=== PATIENT | female | born 1990 | race Caucasian/White ===

== ENCOUNTER 2018-04-30 09:32 | Inpatient (IN) | payer OTHER ==
[~2018-04-30 09:32] MED LIST: Bicitra 30 ML UDCUP PO SCH; CEFAZOLIN 2 GM in Premix Bag 1 BAG IVPB SCH; Lactated Ringer's 1,000 ML IV SCH; Ondansetron PF 4 MG/2 ML Vial IVP PRN; Promethazine HCl 25 MG/ML VIAL IM PRN
--- NOTE | 2018-04-30 09:35 | PDOC.LDHP ---
Labor and Delivery H&P Chief complaint: scheduled section HPI: 27 YEAR OLD AT 39 WEEKS presents for repeat scheduled . TOLAC discussed and declined due to increased risks. Patient has history of benign posterior fossa arachnoid cyst in 2014. Her team at [facility] sent us written clearance for on 03/21/18, stating no concerns from a neurological standpoint. Current gestational age (weeks): 39 Due date: 05/06/18 Grav: 2 Para: 1 Current complications: none Abnormal US findings: Yes (Benign Posterior Fosa Arachnoid Cyst s/p surgery.) Current medications: pre-ike vitamins Previous surgical history: low tranverse CS Social history: none - Physical Exam Vital signs reviewed and normal: yes General: NAD Heart: RRR Lungs: CTAB Abdomen: gravid Extremeties: no edema FHT: category 1 - Assessment L&D Assessment: scheduled repeat section - Plan Plan: admit to L&D, to OR for section
[2018-04-30] MEDS ORDERED: Bicitra 30 ML UDCUP ONE (10:41)
[2018-04-30 10:46] LABS: Hemoglobin 10.7 g/dL (12.0-16.0); Mean Corpuscular HGB CONC 32.4 g/dL (32.0-36.0); Mean Corpuscular Hemoglobin 24.3 pg (27.0-31.0); Mean Corpuscular Volume 75.2 fL (78.0-98.0); Mean Platelet Volume 10.3 fL (7.4-10.4); Platelet Count 243 thou/uL (130-400); RBC Distribution Width 16.6 % (11.5-14.5); White Blood Cell (WBC) Count 11.7 thou/uL (4.8-10.8)
[2018-04-30 10:47] VITALS: BMI 31.6
[2018-04-30] MEDS: Lactated Ringer's 1,000 ML IV SCH ×2 (10:53→10:54)
[2018-04-30 11:23] LABS: Syphilis Antibody Nonreactive (Nonreactive); Syphilis Antibody Index 0.02 S/CO (<1.00 Non-Reactive)
[2018-04-30 11:24] LABS: HBSAg Index 0.22 S/CO (0-0.99); Hep B Surf Ag Non-Reactive S/CO (NonReactive)
[2018-04-30] MEDS ORDERED: Ketorolac Tromethamine 30 MG/ML VIAL ONE ×2 (11:28→12:20)
[2018-04-30] MEDS ORDERED: Ondansetron PF 4 MG/2 ML Vial ONE ×2 (11:28→12:20)
[2018-04-30] MEDS ORDERED: PHENYLEPHRINE-NS 100 MCG/ML 10 ML SYRINGE ONE ×2 (11:28→12:22)
[2018-04-30] MEDS ORDERED: Dexamethasone 20 MG/5 ML VIAL ONE (11:28)
[2018-04-30] MEDS ORDERED: diphenhydrAMINE 50 MG/ML VIAL ONE ×2 (11:28→12:20)
[2018-04-30] MEDS ORDERED: Meperidine HCl/PF 25 MG/ML VIAL SLOW IVP PRN (11:44)
[2018-04-30] MEDS ORDERED: L&D-Morphine 4 MG/ML VIAL SLOW IVP PRN (11:44)
[2018-04-30] MEDS ORDERED: HYDROmorphone 2 MG/ML VIAL SLOW IVP PRN (11:44)
[2018-04-30] MEDS ORDERED: Ondansetron HCl/PF 4 MG/2 ML Vial IVP PRN (11:44)
[2018-04-30] MEDS ORDERED: Ketorolac Tromethamine 30 MG/ML VIAL IVP SCH (11:45)
[2018-04-30] MEDS ORDERED: Communication Order-Pharmacy FS SCH (11:45)
[2018-04-30] MEDS ORDERED: Ketorolac Tromethamine 30 MG/ML VIAL IVP PRN (11:45)
[2018-04-30] MEDS ORDERED: Naloxone HCl 0.4 mg/ml Vial IV PRN (11:45)
[2018-04-30] MEDS ORDERED: Promethazine HCl 25 MG SUPP PR PRN (11:45)
[2018-04-30] MEDS ORDERED: Ondansetron PF 4 MG/2 ML Vial IVP PRN ×2 (11:45→15:28)
[2018-04-30] MEDS ORDERED: Naloxone HCl 0.4 mg/ml Vial IVP PRN ×2 (11:45)
[2018-04-30] MEDS ORDERED: diphenhydrAMINE 50 MG/ML VIAL IVP PRN (11:45)
[2018-04-30] MEDS ORDERED: Promethazine HCl 25 MG/ML VIAL IM PRN ×2 (11:45→15:28)
[2018-04-30] MEDS ORDERED: Eucerin (Mineral Oil/Petrolatum,White) 30 gm Jar TOP PRN (11:45)
[2018-04-30] MEDS ORDERED: MORPHINE 5 MG/10 ML PF VIAL ONE (12:19)
[2018-04-30] MEDS ORDERED: Dexamethasone 4 mg/ml Vial ONE (12:20)
[2018-04-30] MEDS ORDERED: Oxytocin 10 UNITS/ML VIAL ONE ×2 (12:20→12:22)
[2018-04-30] MEDS ORDERED: ePHEDrine/0.9% NaCl/PF SYRINGE 50 mg/10 ml ONE (12:36)
[2018-04-30] MEDS ORDERED: Midazolam HCl 2 mg/2 ml Vial ONE ×2 (12:49→13:12)
[2018-04-30] MEDS ORDERED: Ketamine 50 MG/ML (10ML VIAL) ONE (13:14)
[2018-04-30] MEDS ORDERED: Lanolin Ointment 7 GM TUBE TOP PRN (15:28)
[2018-04-30] MEDS ORDERED: diphenhydrAMINE 25 MG CAP PO PRN (15:28)
[2018-04-30] MEDS ORDERED: Zolpidem Tartrate 5 MG TAB PO PRN (15:28)
[2018-04-30] MEDS ORDERED: Bisacodyl 10 MG SUPP PR PRN (15:28)
[2018-04-30] MEDS ORDERED: Adacel (T-DAP) 0.5 ML SYRINGE IM ONE (15:28)
[2018-04-30] MEDS ORDERED: Measles/Mumps/Rubella 10 MCG/0.5 ML VIAL SC ONE (15:28)
[2018-04-30] MEDS ORDERED: Varicella virus, LIVE 0.5 ML VIAL SC ONE (15:28)
[2018-04-30] MEDS ORDERED: NS / Oxytocin 40 units/1000ml 1,000 ML IV SCH (15:28)
[2018-04-30] MEDS ORDERED: Morphine 2 MG/ML SYRINGE SLOW IVP PRN (17:28)
[2018-04-30] MEDS ORDERED: HYDROcodone/Acetaminophen 5/325 mg Tablet PO PRN (23:45)
[2018-05-01] MEDS: Docusate Calcium (SURFAK) 240 MG CAP PO SCH ×3 (01:12→21:30)
[2018-05-01] MEDS: Ferrous Sulfate 325 MG TAB PO SCH ×3 (01:13→21:30)
[2018-05-01] MEDS: Simethicone Chewable 80 MG TAB PO PRN ×2 (05:42→19:25)
[2018-05-01] MEDS: Prenatal Vitamin 1 TAB PO SCH (08:19)
[2018-05-01] MEDS: HYDROcodone/Acetaminophen 5/325 mg Tablet PO PRN ×2 (08:21→14:22)
[2018-05-01 09:31] LABS: Mean Corpuscular HGB CONC 30.6 g/dL (32.0-36.0); Mean Corpuscular Hemoglobin 23.7 pg (27.0-31.0); Mean Corpuscular Volume 77.3 fL (78.0-98.0); Mean Platelet Volume 10.3 fL (7.4-10.4); Platelet Count 215 thou/uL (130-400); RBC Distribution Width 16.6 % (11.5-14.5); Red Blood Cell (RBC) Count 4.22 mill/uL (4.20-5.40); White Blood Cell (WBC) Count 16.2 thou/uL (4.8-10.8)
[2018-05-01] MEDS: Ibuprofen 800 MG TAB PO SCH ×2 (12:10→21:30)
--- NOTE | 2018-05-01 18:12 | PDOC.PP ---
Post Progress Note Post Day #: 1 PO intake tolerated: yes Flatus: yes Ambulation: yes Vital Signs (12 hours) Temp Pulse Resp BP Pulse Ox 05/01/18 17:25 97.7 F 71 20 129/71 99 05/01/18 12:02 97.8 F 77 20 116/77 05/01/18 08:19 97.6 F 63 20 106/72 98 05/01/18 08:15 98 Weight Weight 202 lb - Physical Examination General: NAD Cardiovascular: no m/r/g, RRR Respiratory: clear to auscultation bilaterally, non-labored breathing Abdominal: + bowel sounds, lochia Extremities: negative homans (B) Skin: CS incision dry & intact, no rash Neurological: no gross focal deficits Result Diagrams: 05/01/18 08:56 Additional Labs: Post Labs Blood Type O POSITIVE 04/30/18 10:29 Hep Bs Antigen Non-Reactive S/CO (NonReactive) 04/30/18 10:29
[2018-05-02] MEDS: HYDROcodone/Acetaminophen 5/325 mg Tablet PO PRN (04:57)
[2018-05-02] MEDS: Ibuprofen 800 MG TAB PO SCH ×2 (05:45→14:29)
[2018-05-02] MEDS: Docusate Calcium (SURFAK) 240 MG CAP PO SCH (09:37)
[2018-05-02] MEDS: Ferrous Sulfate 325 MG TAB PO SCH (09:37)
[2018-05-02] MEDS: Prenatal Vitamin 1 TAB PO SCH (09:37)
[2018-05-02 11:36] VITALS: BP 122/79; TEMP 97.8
--- NOTE | 2018-05-02 14:09 | PDOC.PP ---
Post Progress Note Post Day #: 2 PO intake tolerated: yes Flatus: yes Ambulation: yes Vital Signs (12 hours) Temp Pulse Resp BP Pulse Ox 05/02/18 11:36 97.8 F 80 20 122/79 05/02/18 08:25 99 05/02/18 08:22 97.7 F 92 20 132/74 99 05/02/18 04:55 98.0 F 71 18 118/81 Weight Weight 202 lb - Physical Examination General: NAD Cardiovascular: no m/r/g Respiratory: clear to auscultation bilaterally, non-labored breathing Abdominal: + bowel sounds, lochia Extremities: negative homans (B) Skin: CS incision dry & intact, no rash Neurological: no gross focal deficits Psychiatric: A&Ox3, normal affect Result Diagrams: 05/01/18 08:56 Additional Labs: Post Labs Blood Type O POSITIVE 04/30/18 10:29 Hep Bs Antigen Non-Reactive S/CO (NonReactive) 04/30/18 10:29
--- NOTE | 2018-05-02 21:03 | OP ---
DATE OF PROCEDURE: 04/30/2018 PREOPERATIVE DIAGNOSIS: Intrauterine at 39 weeks and 2 days with a history of previous section. Previous history of neurologic surgery for subarachnoid cyst, and the patient declines trial of labor after previous section. POSTOPERATIVE DIAGNOSIS: Intrauterine at 39 weeks and 2 days with a history of previous section. Previous history of neurologic surgery for subarachnoid cyst, and the patient declines trial of labor after previous section. PROCEDURE PERFORMED: Repeat low transverse section. FINDINGS: Viable male infant, weighing 3950 g or 8 pounds 11 ounces, Apgars 8 and 9. QUANTITATIVE BLOOD LOSS: 557 g. COMPLICATIONS: None. DETAILS OF THE PROCEDURE: The patient was consented and taken back to the operating room where spinal anesthesia was found to be adequate. She was then prepped and draped in the normal sterile fashion. A timeout was performed by the entire operative team. The incision was then marked with a marking pen tested using sharp pickups. An incision was then made with a scalpel. The incision was carried through the adipose tissue down to the underlying rectus fascia using both sharp dissection as well as cautery. Once the fascia was identified, it was incised in the midline and then the fascial incision was carried through in both lateral directions using sharp as well as cautery dissection techniques. Next, the superior aspect of the rectus fascia was grasped with 2 James clamps, which was tented up and the rectus muscles were dissected off using blunt dissection as well as cautery dissection. Similarly, the inferior aspect of the fascial incision was grasped with 2 James clamps, tented up and the rectus muscles were dissected off bluntly as well as sharply. Next, the rectus muscles were in the midline and the peritoneum identified. The peritoneum was then carefully grasped with 2 hemostats and entered sharply. The peritoneal incision was extended superiorly and inferiorly and bladder blade was placed in the lower abdomen. At this point, the uterus was identified and the bladder flap was then developed using pickups with teeth as well as Metzenbaum scissors in both lateral directions. The bladder flap was then dissected downwards using the wire loop machine operator's finger as well as Metzenbaum scissors. The bladder blade was replaced. The lower uterine segment was then identified and entered sharply using a clean scalpel. The uterine incision was then dissected downwards until thin layer of muscle remained and this was entered bluntly using a hemostat to avoid any injury to the baby. The uterine incision was then stretched using two fingers in both lateral directions. An amniotomy was performed artificially using a hemostat and the baby was delivered using fundal pressure in a gentle fashion. Once out, the baby's mouth and nose were bulb suctioned, cord clamped and cut, and the baby was handed to waiting attendants. Next, the uterus was exteriorized, cleared of all clots and debris and the uterine incision was repaired with #1 Monocryl in a running locking fashion. A 2nd suture of the same type was used to obtain complete hemostasis at the uterine incision. The bladder flap was reapproximated using 3-0 Monocryl. Next, patient's left and right adnexa were inspected and appeared to be within normal limits. The posterior cul-de-sac was blotted dry and hemostasis assured. One more look at the uterine incision demonstrated hemostasis. Next, the uterus was replaced back within the abdomen. The peritoneum was reapproximated using 2-0 Monocryl without difficulty. The rectus muscles were then allowed to come back together and 0 chromic was used to aid in reapproximation of the muscle as necessary. The rectus fascia was then reapproximated in a running fashion using 0 Vicryl suture. The adipose tissue was then examined and appeared to be well approximated without any obvious separations. Finally, the skin was reapproximated with 3-0 Monocryl on a Zeke needle without difficulty and Dermabond adhesive was applied to the skin. Once the glue was dry, the drapes were removed and the patient was transferred to an ambulatory bed where she was taken to recovery awake and in stable condition. Sponge, lap, and needle counts were correct x3. Job ID: [id number]
== END 2018-05-02 14:50 | disposition home or self-care (01) | DRG 788 ==
LOC: L&D 09:42 → 3SW 16:39
PROVIDERS: ADMIT Obstetrics & Gynecology; ATTEND Obstetrics & Gynecology
PROC: 10D00Z1 Extraction of Products of Conception, Low, Open Approach (ICD-10-PCS; principal; 2018-04-30)
DX: O34.211 Maternal care for low transverse scar from previous cesarean delivery (principal); Z3A.39 39 weeks gestation of pregnancy; Z37.0 Single live birth
CPT/HCPCS: 36415; 51702; 85027; 86780; 86850; 86900; 86901; 87340; 90715; J1100; J1200; J1885; J2250; J2270; J2405; J2590

== ENCOUNTER 2020-03-27 08:59 | Outpatient (CLI) | payer OTHER ==
[2020-03-28 04:22] LABS: SARS-CoV-2 PCR by NAA Not Detected (NotDetected)
== END 2020-03-27 09:00 | disposition home or self-care (01) ==
LOC: LABBT 08:59
PROVIDERS: ATTEND Obstetrics & Gynecology
DX: Z01.812 Encounter for preprocedural laboratory examination (principal); Z20.822 Contact with and (suspected) exposure to COVID-19
CPT/HCPCS: 87635; U0003; U0005

== ENCOUNTER 2020-04-01 09:54 | Inpatient (IN) | payer OTHER ==
[2020-04-01] MEDS ORDERED: Bicitra 30 ML UDCUP PO PRN (10:03)
[2020-04-01] MEDS ORDERED: Ondansetron PF 4 MG/2 ML Vial IVP PRN ×3 (10:03→15:43)
[2020-04-01] MEDS ORDERED: Promethazine HCl 25 MG/ML VIAL IM PRN ×2 (10:03→11:38)
[2020-04-01] MEDS ORDERED: Famotidine/PF 20 mg/2ml Vial SLOW IVP PRN (10:03)
[2020-04-01] MEDS ORDERED: hydrALAZINE 20 MG/ML VIAL SLOW IVP PRN ×2 (10:03→15:43)
[2020-04-01] MEDS ORDERED: CEFAZOLIN 2 GM in Premix Bag 1 BAG IVPB SCH (10:15)
[2020-04-01] MEDS ORDERED: Lactated Ringer's 1,000 ML IV SCH (10:15)
[2020-04-01 10:33] VITALS: BMI 29.0
[2020-04-01] MEDS ORDERED: FLU VACC QS2020-21(6MOS UP)/PF 60 MCG/0.5 ML SYRINGE IM ONE (10:45)
[2020-04-01 10:55] LABS: Hemoglobin 12.1 g/dL (12.0-16.0); Mean Corpuscular Hemoglobin 26.7 pg (27.0-31.0); Mean Corpuscular Volume 80.7 fL (78.0-98.0); Platelet Count 185 thou/uL (130-400); RBC Distribution Width 15.3 % (11.5-14.5); Red Blood Cell (RBC) Count 4.56 mill/uL (4.20-5.40)
[2020-04-01] MEDS ORDERED: Morphine PF 10 MG/10 ML VIAL ONE (11:12)
[2020-04-01] MEDS ORDERED: PHENYLEPHRINE-NS 100 MCG/ML 10 ML SYRINGE ONE (11:13)
[2020-04-01] MEDS ORDERED: Ketorolac Tromethamine 30 MG/ML VIAL ONE (11:13)
[2020-04-01] MEDS ORDERED: Ondansetron PF 4 MG/2 ML Vial ONE (11:13)
[2020-04-01] MEDS ORDERED: Phenylephrine 40 MG/NS 250 ML 250 ML ONE (11:13)
[2020-04-01] MEDS ORDERED: Oxytocin 10 UNITS/ML VIAL ONE ×2 (11:13→12:51)
[2020-04-01] MEDS ORDERED: ePHEDrine 50 MG/ML VIAL ONE (11:14)
[2020-04-01 11:23] LABS: Syphilis Antibody Nonreactive (Nonreactive); Syphilis Antibody Index 0.03 S/CO (<1.00 Non-Reactive)
[2020-04-01] MEDS ORDERED: Ondansetron HCl/PF 4 MG/2 ML Vial IVP PRN (11:38)
[2020-04-01] MEDS ORDERED: Promethazine HCl 25 MG SUPP PR PRN (11:38)
[2020-04-01] MEDS ORDERED: Naloxone HCl 0.4 mg/ml Vial IVP PRN ×2 (11:38)
[2020-04-01] MEDS ORDERED: L&D-Morphine 4 MG/ML VIAL SLOW IVP PRN (11:38)
[2020-04-01] MEDS ORDERED: diphenhydrAMINE 50 MG/ML VIAL IVP PRN (11:38)
[2020-04-01] MEDS ORDERED: HYDROmorphone 2 MG/ML VIAL SLOW IVP PRN (11:38)
[2020-04-01] MEDS ORDERED: Naloxone HCl 0.4 mg/ml Vial IV PRN (11:38)
[2020-04-01] MEDS ORDERED: Communication Order-Pharmacy FS SCH (11:45)
[2020-04-01] MEDS ORDERED: Fentanyl 250 MCG/5 ML VIAL ONE (12:37)
[2020-04-01] MEDS ORDERED: PROPOFOL 20 ML ONE ×2 (12:37→12:54)
[2020-04-01] MEDS ORDERED: Promethazine HCl 25 MG/ML VIAL ONE (12:39)
[2020-04-01] MEDS: Meperidine HCl/PF 25 MG/ML VIAL SLOW IVP PRN ×2 (13:52→14:25)
[2020-04-01] MEDS ORDERED: Meperidine HCl/PF 25 MG/ML VIAL ONE ×2 (13:52→14:23)
[2020-04-01] MEDS ORDERED: Morphine 4 MG/ML VIAL ONE (14:23)
[2020-04-01 14:40] LABS: HBSAg Index 0.16 S/CO (0-0.99); Hep B Surf Ag Non-Reactive S/CO (NonReactive)
[2020-04-01] MEDS ORDERED: Morphine 4 MG/ML VIAL SLOW IVP PRN (15:42)
[2020-04-01] MEDS ORDERED: Bisacodyl 10 MG SUPP PR PRN (15:43)
[2020-04-01] MEDS ORDERED: diphenhydrAMINE 25 MG CAP PO PRN (15:43)
[2020-04-01] MEDS ORDERED: Lanolin Ointment 7 GM TUBE TOP PRN (15:43)
[2020-04-01] MEDS ORDERED: Acetaminophen 325 MG TAB PO PRN (15:43)
[2020-04-01] MEDS ORDERED: Ketorolac Tromethamine 30 MG/ML VIAL IVP SCH (18:00)
[2020-04-01] MEDS: Ketorolac Tromethamine 30 MG/ML VIAL IVP PRN (18:48)
[2020-04-01] MEDS: Simethicone Chewable 80 MG TAB PO PRN (18:49)
[2020-04-01] MEDS: Docusate Calcium (SURFAK) 240 MG CAP PO SCH (21:41)
[2020-04-01] MEDS: Ibuprofen 800 MG TAB PO SCH (22:00)
[2020-04-02] MEDS: Ketorolac Tromethamine 30 MG/ML VIAL IVP PRN ×2 (02:20→12:22)
[2020-04-02 05:41] LABS: Hemoglobin 10.7 g/dL (12.0-16.0); Mean Corpuscular HGB CONC 32.5 g/dL (32.0-36.0); Mean Corpuscular Hemoglobin 26.1 pg (27.0-31.0); Mean Corpuscular Volume 80.4 fL (78.0-98.0); RBC Distribution Width 15.3 % (11.5-14.5); Red Blood Cell (RBC) Count 4.07 mill/uL (4.20-5.40); White Blood Cell (WBC) Count 13.9 thou/uL (4.8-10.8)
[2020-04-02 05:42] LABS: Mean Platelet Volume 10.2 fL (7.4-10.4); Platelet Count 158 thou/uL (130-400)
[2020-04-02] MEDS: Ibuprofen 800 MG TAB PO SCH ×3 (08:34→21:36)
[2020-04-02] MEDS: Simethicone Chewable 80 MG TAB PO PRN ×3 (08:42→21:36)
[2020-04-02] MEDS: Docusate Calcium (SURFAK) 240 MG CAP PO SCH ×2 (08:43→21:37)
[2020-04-02] MEDS: Prenatal Vitamin 1 TAB PO SCH (08:43)
[2020-04-02] MEDS: HYDROcodone/Acetaminophen 5/325 mg Tablet PO PRN ×3 (08:46→18:13)
[2020-04-02] MEDS ORDERED: Varicella virus, LIVE 0.5 ML VIAL SC ONE (09:00)
[2020-04-02] MEDS ORDERED: Measles/Mumps/Rubella 10 MCG/0.5 ML VIAL SC ONE (09:00)
[2020-04-02] MEDS ORDERED: Sodium Chloride 0.9% 10 ML ONE (12:17)
[2020-04-02] MEDS ORDERED: Adacel (T-DAP) 0.5 ML SYRINGE IM ONE (15:43)
[2020-04-03] MEDS: Ibuprofen 800 MG TAB PO SCH (05:05)
[2020-04-03 05:13] VITALS: TEMP 98.2
[2020-04-03 07:56] VITALS: BP 126/78
[2020-04-03] MEDS: Docusate Calcium (SURFAK) 240 MG CAP PO SCH (08:36)
[2020-04-03] MEDS: Prenatal Vitamin 1 TAB PO SCH (08:36)
== END 2020-04-03 12:42 | disposition home or self-care (01) | DRG 788 ==
LOC: L&D 09:54 → 3SW 16:30
PROVIDERS: ADMIT Obstetrics & Gynecology; ATTEND Obstetrics & Gynecology
PROC: 10D00Z1 Extraction of Products of Conception, Low, Open Approach (ICD-10-PCS; principal; 2020-04-01)
DX: O34.211 Maternal care for low transverse scar from previous cesarean delivery (principal); Z37.0 Single live birth; Z3A.39 39 weeks gestation of pregnancy
CPT/HCPCS: 36415; 51702; 85027; 86780; 86850; 86900; 86901; 87340; J0690; J1885; J2175; J2270; J2405; J2550; J2704; J3010; J3490